=== PATIENT | male | born 1985 | race Hispanic/Latino ===

== ENCOUNTER 2018-01-26 17:47 | Emergency (ER) | payer SELFPAY ==
[2018-01-26 18:22] VITALS: BP 168/96
--- NOTE | 2018-01-26 20:37 | Emergency Department Report ---
ED Upper Extremity Inj HPI - General Chief Complaint: Extremity Injury, Upper Stated Complaint: RIGHT HAND INJURY/PAIN Time Seen by Provider: 01/26/18 20:01 Source: patient Mode of arrival: Ambulatory Limitations: No Limitations - History of Present Illness Initial Comments: 32-year-old male comes in reporting a puncture wound with the nail to his fourth finger of his right hand on Friday. He states that it is now painful to make a fist. There is no active bleeding he states that his last tetanus shot was a year ago. He denies any discharge coming from the wound. Complaint: Injury to:: right, hand -: days(s) (3) Other Extremity Injury: Fingers: Right (4th ) Handedness: right Place: work Severity scale (0 -10): 5 Improves With: none Worsens With: movement of extremity (making a fist) - Related Data Previous Rx's Medication Instructions Recorded Last Taken Type Acetaminophen/Codeine [Tylenol #3] 1 tab PO Q6H PRN #20 tab 03/01/15 Unknown Rx Cephalexin [Keflex] 500 mg PO Q6HR #20 capsule 03/01/15 Unknown Rx Ibuprofen [Motrin 800 MG tab] 800 mg PO Q8HR PRN #30 tablet 03/01/15 Unknown Rx Ibuprofen [Motrin 600 MG tab] 600 mg PO Q8H PRN #15 tablet 01/26/18 Unknown Rx Allergies Allergy/AdvReac Type Severity Reaction Status Date / Time No Known Allergies Allergy Verified 01/26/18 18:19 ED Review of Systems ROS: Stated complaint: RIGHT HAND INJURY/PAIN Other details as noted in HPI Constitutional: denies: chills, fever Musculoskeletal: arthralgia (right fourth digit) Skin: other (puncture wound to the right fourth digit) Psychiatric: denies: anxiety, depression Hematological/Lymphatic: as per HPI ED Past Medical Hx - Past Medical History Previous Medical History?: No - Surgical History Hx Appendectomy: Yes - Social History Smoking Status: Current Every Day Smoker Substance Use Type: Alcohol - Medications Home Medications: Home Medications Medication Instructions Recorded Confirmed Last Taken Type Acetaminophen/Codeine [Tylenol #3] 1 tab PO Q6H PRN #20 tab 03/01/15 Unknown Rx Cephalexin [Keflex] 500 mg PO Q6HR #20 capsule 03/01/15 Unknown Rx Ibuprofen [Motrin 800 MG tab] 800 mg PO Q8HR PRN #30 tablet 03/01/15 Unknown Rx Ibuprofen [Motrin 600 MG tab] 600 mg PO Q8H PRN #15 tablet 01/26/18 Unknown Rx ED Physical Exam - General Limitations: No Limitations General appearance: alert, in no apparent distress - Head Head exam: Present: atraumatic, normocephalic - ENT ENT exam: Present: mucous membranes dry - Expanded Upper Extremity Exam Right Neuro motor exam: Present: wrist extension intact, thumb opposition intact, thumb IP flexion intact, thumb adduction intact, fingers 2-5 abduction intact Neurosensory exam: Present: 2-point discrimination, radial nerve intact, ulnar nerve intact, median nerve intact Vascular: Present: normal capillary refill. Absent: vascular compromise - Neurological Exam Neurological exam: Present: alert, oriented X3 - Psychiatric Psychiatric exam: Present: normal affect, normal mood - Skin Skin exam: Present: warm, dry, intact, normal color. Absent: rash ED Course Vital Signs 01/26/18 18:19 Temperature 98.9 F Pulse Rate 86 Respiratory 16 Rate Blood Pressure 168/96 O2 Sat by Pulse 99 Oximetry ED Medical Decision Making - Radiology Data Radiology results: report reviewed, image reviewed FINAL REPORT EXAM: XR HAND 2V RT HISTORY: Nail hit the bone of his right hand TECHNIQUE: Two views right hand Comparison: None FINDINGS: Normal bony mineralization. No fracture or dislocation. No radiopaque foreign body or soft tissue gas. IMPRESSION: No fracture. No disruption of the nail bed. Transcribed By: DIALLO Dictated By: JIMMY BHATTI Electronically Authenticated By: JIMMY BHATTI Signed Date/Time: 01/26/182155 DD/ 55 TD/TT: 01/26/182155 Critical care attestation.: If time is entered above; I have spent that time in minutes in the direct care of this critically ill patient, excluding procedure time. ED Disposition Clinical Impression: Finger pain, right Disposition: DC-01 TO HOME OR SELFCARE Is pt being admited?: No Does the pt Need Aspirin: No Condition: Stable Instructions: Arthralgia (ED), Finger Sprain (ED) Additional Instructions: X-ray was negative. You can take Motrin for pain as needed. Please keep the wound clean and dry. Return back if any signs of infection such as purulent discharge swelling increased pain or redness. Prescriptions: Ibuprofen [Motrin 600 MG tab] 600 mg PO Q8H PRN #15 tablet PRN Reason: Pain Referrals: PRIMARY CARE,MD [Primary Care Provider] - 3-5 Days Forms: Work/School Release Form(ED)
--- NOTE | 2018-01-26 22:04 | XRay Report ---
FINAL REPORT EXAM: XR HAND 2V RT HISTORY: Nail hit the bone of his right hand TECHNIQUE: Two views right hand Comparison: None FINDINGS: Normal bony mineralization. No fracture or dislocation. No radiopaque foreign body or soft tissue gas. IMPRESSION: No fracture. No disruption of the nail bed.
== END 2018-01-26 22:25 | disposition home or self-care (01) ==
LOC: ED 17:47
DX: M79.644 Pain in right finger(s) (principal); F17.200 Nicotine dependence, unspecified, uncomplicated; Z90.49 Acquired absence of other specified parts of digestive tract
CPT/HCPCS: 99283